=== PATIENT | female | born 1995 | race Caucasian/White ===

== ENCOUNTER 2016-08-19 16:14 | Inpatient (IN) | payer OTHER ==
[~2016-08-19] VITALS: Ht 165.1 cm; Wt 80.0 kg
[2016-08-19 16:27] VITALS: BP 136/81; PULSE 95; Ht 165.1 cm; Wt 80.0 kg
[2016-08-19] MEDS ORDERED: LACTATED RINGER'S 1,000 ML IV SCH (16:39)
[2016-08-19] MEDS ORDERED: CARBOPROST 250 MCG INJ IM PRN (17:00)
[2016-08-19] MEDS ORDERED: OXYTOCIN 30 UNITS/LR 500 ML IV PRN (17:00)
[2016-08-19] MEDS ORDERED: LACTATED RINGER'S 1,000 ML IV PRN (17:00)
[2016-08-19] MEDS ORDERED: METHYLERGONOVINE 0.2 MG INJ IM PRN (17:00)
[2016-08-19] MEDS ORDERED: MISOPROSTOL 200 MCG TAB PR PRN (17:00)
[2016-08-19] MEDS ORDERED: BUTORPHANOL 2 MG INJ IV PRN ×2 (17:00)
[2016-08-19] MEDS ORDERED: OXYTOCIN 30 UNITS/LR 500 ML IV SCH ×2 (17:00)
[2016-08-19] MEDS ORDERED: LIDOCAINE 1% (MPF) 30 ML INJ INJ PRN (17:00)
[2016-08-19] MEDS ORDERED: DINOPROSTONE 10 MG VAG SUPP VAG ONE (17:00)
--- NOTE | 2016-08-19 17:06 | RADRPT ---
PROCEDURE: US OB. CLINICAL INDICATION: Post dates. TECHNIQUE: Multiple sonographic images of the uterus were obtained. The images were revi ewed on a PACS workstation. COMPARISON: No prior studies are available for comparison. FINDINGS: There is a single live intrauterine gestation. heart rate is 136 beats per minute. Measurements were made in order to determine age. The results are as follows: BPD = 9.24 cm. HC = 34.39 cm. AC = 34.12 cm. FL = 7.47 cm. Estimated weight is 3424 +/- 514 grams. LMP growth percentile is 32 %. Menstrual age by ultrasound dates is 38 weeks 3 days. The estimated date of delivery is 08/30/2016. Position is cephalic and placenta is anterior grade 1. There is no evidence for an abruption or plac enta previa. IMPRESSION: 1. Single live intrauterine gestation of 38 weeks 3 days menstrual age by ultrasound dates. 2. The estimated date of delivery is 08/30/2016. RPTAT: QQ .Wiliam Taylor MD, Date Time Electronically viewed and signed by .Wiliam Taylor MD, on 08/19/2016 17:06 .R/
[2016-08-19] MEDS ORDERED: AMPICILLIN 2 GM/NS (PMX) 100 ML IV ONE (18:00)
[2016-08-19 18:23] LABS: ADD SCAN DIFF NO
[2016-08-19 18:31] LABS: BASOPHILS % 0.2 % (0.0-2.0); EOSINOPHILS % 0.3 % (0.0-7.0); HEMATOCRIT 35.1 % (37.0-47.0); HEMOGLOBIN 11.8 g/dl (12.0-16.0); LYMPHOCYTES # 2.3 10^3/ul (0.8-2.9); MEAN CORPUSCULAR HEMOGLOBIN 28.7 pg (29.0-33.0); MEAN CORPUSCULAR HGB CONC 33.6 g/dl (32.0-37.0); MEAN CORPUSCULAR VOLUME 85.4 fl (82.0-101.0); MEAN PLATELET VOLUME 11.5 fl (7.4-10.4); MONOCYTE # 0.8 10^3/ul (0.3-0.9); MONOCYTES % 7.6 % (0.0-11.0); NEUTROPHIL # 6.9 10^3/ul (1.6-7.5); NEUTROPHILS % 68.7 % (39.0-77.0); PLATELET COUNT 271 10^3/UL (140-415); RED BLOOD COUNT 4.11 10^6/ul (4.20-5.40); RED CELL DISTRIBUTION WIDTH 14.3 % (11.5-14.5)
[2016-08-19 18:42] LABS: INR 1.01; PARTIAL THROMBOPLASTIN TIME 27.9 Sec (25.0-35.0); PROTIME 13.3 Sec (12.2-14.2)
[2016-08-19 20:24] LABS: BARBITURATES Negative (NEGATIVE); BENZODIAZEPINES Negative (NEGATIVE); CANNABINOIDS Negative (NEGATIVE); COCAINE Negative (NEGATIVE); OPIATES Negative (NEGATIVE)
--- NOTE | 2016-08-19 21:03 | RADRPT ---
PROCEDURE: US OB biophysical profile. CLINICAL INDICATION: decreased movements, post dates TECHNIQUE: Multiple sonographic images of the pelvis were obtained. The images were reviewed on a PACS workstation. COMPARISON: No prior studies are available for comparison. FINDINGS: There is a single viable intrauterine gestation. Cardiac activity is present with 152 beats per min jose. There is a vertex presentation. The placenta is anterior. There is no evidence of placental abruption. There is a slightly decreased amount of amniotic fluid with an HEIDE = 7.5 cm. Biophysical profile: movement 2/2 tone 2/2. breathing 2/2 HEIDE 2/2 Total 09/20 RPTAT: AA . IMPRESSION: Normal biophysical profile. Mild oligohydramnios. . .Master Pleitez MD, MD Date Time Electronically viewed and signed by .Master Pleitez MD, MD on 08/19/2016 21:03 .S/
[2016-08-19] MEDS ORDERED: AMPICILLIN 1 GM/NS (PMX) 50 ML IV SCH (22:00)
--- NOTE | 2016-08-19 23:36 | PN ---
Triage Information Date/Time Aug 19, 2016 at 16:46 Weeks of Gestation 40 weeks and 1 day : 1 Para: 0 Diabetes: none Hypertention: none Additional information 21-year-old 1 para 0 with IUP at 40 weeks and 1 day with care with [facility] presented with flank uterine contractions. She was observed and was noted to have a nonfavorable cervix. She was 1 cm 50% -2. Antepartum course was uncomplicated. NST category 1. HEIDE 7.4. Patient observed after couple hours. No cervical change noted. Options discussed including starting induction versus expectant management until 40 weeks and 6 days and plan to induce at 40 and 6 considering testing twice a week reassuring. Patient desires to proceed with expectant management as above. Objective Vital Signs Date Time Temp Pulse Resp B/P Pulse Ox O2 Delivery O2 Flow Rate FiO2 08/19/16 16:27 98.5 95 136/81 Heart Rate: 130's Contractions: >10 Minutes Apart Exam General appearance: Alert and oriented 4. Patient does not appear to be in any acute distress. Abdomen: Soft, gravid, fundal height consistent with gestational age. Extremities: No calf tenderness, no click no edema. NST: Category 1 HEIDE: 7.4 Cervical exam: 1/50-2 vertex. No cervical change noted during observation Results/Medications Result Diagram: 08/19/16 1710 Results 24 hrs Laboratory Tests Test 08/19/16 17:10 08/19/16 18:30 White Blood Count 10.0 # Red Blood Count 4.11 L Hemoglobin 11.8 L Hematocrit 35.1 L Mean Corpuscular Volume 85.4 Mean Corpuscular Hemoglobin 28.7 L Mean Corpuscular Hemoglobin Concent 33.6 Red Cell Distribution Width 14.3 Platelet Count 271 Mean Platelet Volume 11.5 #H Neutrophils % 68.7 Lymphocytes % 23.0 Monocytes % 7.6 Eosinophils % 0.3 Basophils % 0.2 Nucleated Red Blood Cells % 0.0 Neutrophils # 6.9 Lymphocytes # 2.3 Monocytes # 0.8 Eosinophils # 0.0 Basophils # 0.0 Nucleated Red Blood Cells # 0.0 Prothrombin Time 13.3 Prothrombin Time Ratio 1.0 INR International Normalized Ratio 1.01 Activated Partial Thromboplast Time 27.9 Hepatitis B Surface Antigen NEGATIVE Urine Opiates Screen Negative Urine Barbiturates Negative Urine Amphetamines Screen Negative Urine Benzodiazepines Screen Negative Urine Cocaine Screen Negative Urine Cannabinoids Negative Imaging Results PROCEDURE: US OB biophysical profile. CLINICAL INDICATION: decreased movements, post dates TECHNIQUE: Multiple sonographic images of the pelvis were obtained. The images were reviewed on a PACS workstation. COMPARISON: No prior studies are available for comparison. FINDINGS: There is a single viable intrauterine gestation. Cardiac activity is present with 152 beats per minute. There is a vertex presentation. The placenta is anterior. There is no evidence of placental abruption. There is a slightly decreased amount of amniotic fluid with an HEIDE = 7.5 cm. Biophysical profile: movement 2/2 tone 2/2. breathing 2/2 HEIDE 2/2 Total 09/20 RPTAT: AA . IMPRESSION: Normal biophysical profile. Mild oligohydramnios. . PROCEDURE: US OB. CLINICAL INDICATION: Post dates. TECHNIQUE: Multiple sonographic images of the uterus were obtained. The images were reviewed on a PACS workstation. COMPARISON: No prior studies are available for comparison. FINDINGS: There is a single live intrauterine gestation. heart rate is 136 beats per minute. Measurements were made in order to determine age. The results are as follows: BPD = 9.24 cm. HC = 34.39 cm. AC = 34.12 cm. FL = 7.47 cm. Estimated weight is 3424 +/- 514 grams. LMP growth percentile is 32 %. Menstrual age by ultrasound dates is 38 weeks 3 days. The estimated date of delivery is 08/30/2016. Position is cephalic and placenta is anterior grade 1. There is no evidence for an abruption or placenta previa. IMPRESSION: 1. Single live intrauterine gestation of 38 weeks 3 days menstrual age by ultrasound dates. 2. The estimated date of delivery is 08/30/2016. RPTAT: QQ Assessment/Plan IUP at 40 weeks and 1 day Postdates None in labor Unfavorable cervix testing reassuring Plan: NV home options including induction and increased risk of section versus expectant management with close monitoring and twice a week testing and induction at 40 weeks and 6 days discussed with the patient with the risk and benefit of each in detail. Patient desired to proceed with expectant management Follow-up tomorrow in 24 hours after hydration for repeat HEIDE If HEIDE normal continue expectant management with twice a week testing and plan to deliver at 40 weeks and 6 days Strict labor precaution and kick count discussed. CHAD LOPEZ MD Aug 19, 2016 23:35
== END 2016-08-19 23:03 | disposition home or self-care (01) | DRG 782 ==
LOC: OBT 16:14 → L-D 16:14 → OBT 16:35 → L-D 16:46
PROVIDERS: ADMIT Obstetrics & Gynecology; ATTEND Obstetrics & Gynecology
PROC: 4A0HXCZ Measurement of Products of Conception, Cardiac Rate, External Approach (ICD-10-PCS; principal; 2016-08-19)
DX: O48.0 Post-term pregnancy (principal); Z3A.40 40 weeks gestation of pregnancy
CPT/HCPCS: 76815; 76818; 80307; 85025; 85610; 85730; 86592; 86900; 86901; 87340; G0463; J0290; J7120

== ENCOUNTER 2016-08-21 08:14 | Outpatient (CLI) | payer OTHER ==
[~2016-08-21] VITALS: Ht 165.1 cm; Wt 80.5 kg
[2016-08-21 08:42] VITALS: Ht 165.1 cm; Wt 80.5 kg
[2016-08-21 08:43] VITALS: BP 116/69; PULSE 85; RESP 85
--- NOTE | 2016-08-21 09:19 | RADRPT ---
PROCEDURE: US OB biophysical profile. CLINICAL INDICATION: decreased movements, post dates TECHNIQUE: Multiple sonographic images of the pelvis were obtained. The images were reviewed on a PACS workstation. COMPARISON: No prior studies are available for comparison. FINDINGS: There is a single viable intrauterine gestation. Cardiac activity is present with 144 beats per min jose. There is a vertex presentation. The placenta is anterior. There is no evidence of placental abruption. There is a normal amount of amniotic fluid with an HEIDE = 7.9 cm. Biophysical profile: movement 2/2 tone 2/2. breathing 2/2 HEIDE 2/2 Total 09/20 RPTAT: AA . IMPRESSION: Normal biophysical profile. Slightly decreased HEIDE. . .Master Pleitez MD, Date Time Electronically viewed and signed by .Master Pleitez MD, on 08/21/2016 09:18 .S/
--- NOTE | 2016-08-21 09:52 | PN ---
Triage Information Date/Time August 21, 2016 Weeks of Gestation 40w 3d : 2 Para: 0 Diabetes: none Hypertention: none Additional information Here for follow-up on her HEIDE; postdates. Objective Vital Signs Date Time Temp Pulse Resp B/P Pulse Ox O2 Delivery O2 Flow Rate FiO2 08/21/16 08:43 98.2 85 85 116/69 Room Air Heart Rate: 140's Heart Rate Comments Accels to 170 bpm. Questionable slight variable decel with a UC, otherwise good beat to beat variability. Contractions: None Exam 60%/2/-2/very posterior. Results/Medications Imaging Results BPP 8/8. HEIDE 7.9. Assessment/Plan IUP at 40w 3d. Postdates. HEIDE normal at 7.9. BPP 8/8. P: D/C home and pt to return tonight for pitocin induction due to slight variable with a UC. It is the pt's grandmother's birthday this afternoon and she really does not want to miss it. She promises to come back immediately after it is over. YUNG CARRERA MD Aug 21, 2016 09:52
== END 2016-08-21 09:55 | disposition home or self-care (01) ==
LOC: L-D 08:14 → OBT 08:14
PROVIDERS: ATTEND Obstetrics & Gynecology
DX: O62.8 Other abnormalities of forces of labor (principal); Z3A.40 40 weeks gestation of pregnancy
CPT/HCPCS: 76818; Z7500; G0463

== ENCOUNTER 2016-08-21 19:00 | Inpatient (IN) | payer OTHER ==
[~2016-08-21] VITALS: Ht 165.1 cm; Wt 80.8 kg
[2016-08-21 23:26] LABS: ADD SCAN DIFF NO
[2016-08-21 23:28] LABS: BASOPHILS % 0.2 % (0.0-2.0); EOSINOPHILS % 0.5 % (0.0-7.0); HEMATOCRIT 32.1 % (37.0-47.0); LYMPHOCYTES # 2.3 10^3/ul (0.8-2.9); LYMPHOCYTES % 26.4 % (15.0-51.0); MEAN CORPUSCULAR HEMOGLOBIN 29.3 pg (29.0-33.0); MEAN CORPUSCULAR HGB CONC 34.3 g/dl (32.0-37.0); MEAN CORPUSCULAR VOLUME 85.4 fl (82.0-101.0); MEAN PLATELET VOLUME 10.9 fl (7.4-10.4); MONOCYTE # 0.8 10^3/ul (0.3-0.9); MONOCYTES % 9.2 % (0.0-11.0); NEUTROPHIL # 5.7 10^3/ul (1.6-7.5); NEUTROPHILS % 63.6 % (39.0-77.0); PLATELET COUNT 272 10^3/UL (140-415); RED BLOOD COUNT 3.76 10^6/ul (4.20-5.40); RED CELL DISTRIBUTION WIDTH 14.1 % (11.5-14.5); WHITE BLOOD COUNT 8.9 10^3/ul (4.8-10.8)
[2016-08-21] MEDS ORDERED: CARBOPROST 250 MCG INJ IM PRN (23:30)
[2016-08-21] MEDS ORDERED: OXYTOCIN 30 UNITS/LR 500 ML IV SCH ×2 (23:30)
[2016-08-21] MEDS ORDERED: LACTATED RINGER'S 1,000 ML IV PRN (23:30)
[2016-08-21] MEDS ORDERED: OXYTOCIN 30 UNITS/LR 500 ML IV PRN (23:30)
[2016-08-21] MEDS ORDERED: METHYLERGONOVINE 0.2 MG INJ IM PRN (23:30)
[2016-08-21] MEDS ORDERED: IBUPROFEN 600 MG TAB PO PRN (23:30)
[2016-08-21] MEDS ORDERED: MISOPROSTOL 200 MCG TAB PR PRN (23:30)
[2016-08-21] MEDS ORDERED: LIDOCAINE 1% (MPF) 30 ML INJ INJ PRN (23:30)
[2016-08-21] MEDS: LACTATED RINGER'S 1,000 ML IV SCH (23:37)
[2016-08-21 23:42] VITALS: Ht 165.1 cm; Wt 80.8 kg
[2016-08-21 23:43] VITALS: BP 123/66; PULSE 99; RESP 16
[2016-08-21 23:47] LABS: INR 0.93; PARTIAL THROMBOPLASTIN TIME 27.2 Sec (25.0-35.0); PROTIME 12.5 Sec (12.2-14.2)
--- NOTE | 2016-08-22 00:39 | RADRPT ---
PROCEDURE: Obstetrical ultrasound greater than 14 weeks CLINICAL INDICATION: Contractions. Estimated weight TECHNIQUE: Real time sonographic imaging of the gravid uterus is performed transabdominally and mu ltiple static roche scale and Doppler images are submitted for review as are measurements. The image s are reviewed on the PACS. COMPARISON: 08/19/2016 FINDINGS: There is a single living intrauterine gestation in cephalic presentation. The heart beat is estimated at 166 bpm. The measurements are as follows: BPD:9.32 cm HC:33.99 cm AC:36.44 cm FL:7.85 cm Estimated gestational age is 39 weeks 3 days. The estimated date of delivery is 08/25/2016. The estimated weight is 3901 grams. Placenta is anterior and grade2. There is no evidence of placenta previa or abruption. RPTAT:HJJR IMPRESSION: 1. Single viable intrauterine gestation in cephalic presentation estimated at 39 weeks 3 days with t he estimated date of delivery 08/25/2016. 2. Estimated weight of 3901 g, previously estimated at 3424 g on the study of 08/19/2016. Physician Marj Date Time Electronically viewed and signed by Physician Marj on 08/22/2016 00:39 /
--- NOTE | 2016-08-22 01:10 | HP ---
Date/Time of Note Date/Time of Note DATE: 08/22/16 TIME: 01:07 OB - History Hx of Present Chief Complaint: induction of labor Estimated Due Date: Aug 18, 2016 : 2 Para: 0 Spontaneous : 1 Therapeutic : 0 Care: Other (records not available) Ultrasounds: Other (normal ultrasound today) Obstetrical Complications: None Medical Complications: None Past Family/Social History * Past Medical, Surgical, Family and Obstetric Histories reviewed from chart. GBS Status: Negative OB Admission Exam Vital Signs Vital Signs Vital Signs Date Time Temp Pulse Resp B/P Pulse Ox O2 Delivery O2 Flow Rate FiO2 08/21/16 23:43 98.4 99 16 123/66 Room Air Physical Exam HEENT: WNL Heart: Rhythm Normal Lungs: Clear, Equal Abdomen: WNL Extremities: Normal Reflexes: Normal Cervical Dilatation: 2cm Effacement: 50% Station: -1 Membranes: Intact Last 72 hours Lab Results CBC & BMP 08/21/16 23:15 OB Assessment/Plan Reason for admission: induction of labor Plan: Induction Induction Method: per Pitocin Protocol ZACARIAS ARELLANO MD Aug 22, 2016 01:10
[2016-08-22] MEDS ORDERED: BUTORPHANOL 2 MG INJ IV PRN (06:00)
[2016-08-22] MEDS: LACTATED RINGER'S 1,000 ML IV SCH ×4 (07:10→20:55)
[2016-08-22] MEDS ORDERED: ONDANSETRON 4 MG INJ IV PRN (08:30)
[2016-08-22] MEDS ORDERED: HYDROmorphONE 1 MG/ML SYG IV PRN ×2 (08:30)
[2016-08-22] MEDS ORDERED: ZOLPIDEM 5 MG TAB PO PRN (08:30)
[2016-08-22] MEDS ORDERED: FENTAnyl 2MCG/ML-ROPIV 0.2% 100 ML BAG EPI SCH (08:30)
[2016-08-22] MEDS ORDERED: NALOXONE (0.4 MG/ML) INJ IV PRN (08:30)
[2016-08-22] MEDS ORDERED: PROCHLORPERAZINE 10 MG INJ IV PRN (08:30)
[2016-08-22] MEDS ORDERED: KETOROLAC 30 MG INJ IV PRN (08:30)
[2016-08-22] MEDS ORDERED: DIPHENHYDRAMINE 50 MG INJ IV PRN (08:30)
[2016-08-22] MEDS ORDERED: TERBUTALINE 1 MG/ML INJ SC ONE (11:30)
[2016-08-22] MEDS ORDERED: OXYTOCIN 30 UNITS/LR 500 ML IV SCH (15:30)
[2016-08-22] MEDS ORDERED: AMPICILLIN 2 GM/NS (PMX) 100 ML IVPB ONE (15:30)
[2016-08-22] MEDS: AMPICILLIN 1 GM/NS (PMX) 50 ML IVPB SCH ×2 (19:28→23:30)
[2016-08-22] MEDS ORDERED: LIDOCAINE 2%/EPI 30 ML INJ ONE (23:14)
[2016-08-22] MEDS ORDERED: TERBUTALINE 1 ML ONE (23:15)
[2016-08-22] MEDS ORDERED: PHENYLephrine (100 MCG/ML) 5ML SYG ONE ×3 (23:18→23:52)
[2016-08-22] MEDS ORDERED: CEFAZOLIN 1 GM INJ ONE (23:23)
[2016-08-22] MEDS ORDERED: FENTAnyl 50 MCG/ML VIAL ONE ×2 (23:34→23:42)
[2016-08-22] MEDS ORDERED: morphine SULFATE/PF (10 MG/10 ML) INJ ONE (23:48)
[2016-08-23] MEDS ORDERED: DIPHENHYDRAMINE 50 MG INJ IV PRN
[2016-08-23] MEDS ORDERED: FENTAnyl 50 MCG/ML VIAL IV PRN ×2
[2016-08-23] MEDS ORDERED: ONDANSETRON 4 MG INJ IV PRN
[2016-08-23] MEDS ORDERED: MEPERIDINE 25 MG INJ IV PRN
[2016-08-23] MEDS ORDERED: METOCLOPRAMIDE 10 MG INJ IV PRN
[2016-08-23] MEDS ORDERED: KETOROLAC 30 MG INJ IV ONE
[2016-08-23] MEDS ORDERED: HYDROmorphONE (0.2 MG/ML) 10ML SYG IV PRN ×3
[2016-08-23] MEDS ORDERED: PHENYLephrine (100 MCG/ML) 5ML SYG ONE (00:20)
--- NOTE | 2016-08-23 02:22 | OPR ---
Operative Report Planned Procedure Procedure date Aug 23, 2016 Procedure(s) Primary C/S Performed by: AMEE MARES MD Assisting provider: AMY SERNA MD Pre-procedure diagnosis 21 y/o with SIUP at 40 4/7 weeks with prolonged deceleration Anesthesia Type: epidural Procedure Description INDICATION & HISTORY The patient is a 21 year-old with single intrauterine at 40 4/7 weeks with prolonged deceleration. The risks of delivery including but not limited to bleeding, infection, injury to other organs (bowel, bladder, ureters , vessels, nerves), injury to the , blood transfusion, blood transfusion related infections, removal of uterus, risk of anesthesia, risks with future , repeat , adhesion/hernia formation discussed in detail with the patient. She voiced understanding and agreed with . She signed the informed consent. DESCRIPTION OF OPERATION: The patient was taken to the operating room, where she was identified and the procedure was verified. She had epidural anesthesia which bolus dose given, The patient was placed in dorsal supine position with the left tilt. The heart rate was 86-135 per minute. The patient was then prepped and draped in the normal sterile fashion. The Pfannenstiel skin incision was made, and carried down to the fascia. The fascia was incised in the midline, and the fascial incision was carried laterally with the Dodson scissors. The superior portion of the fascial incision was then grasped with Uri clamps, tented up and dissected off the underlying rectus muscle with sharp dissection. The lower portion of the fascial incision was then made in a similar fashion. The rectus muscle was and the peritoneum was entered. The peritoneal incision was then stretched and a bladder blade was inserted. Then, an incision was made in the lower uterine segment in a transverse fashion with the knife and extended bluntly. The was delivered atraumatically in cephalic presentation, with the above findings. The resuscitation team was present and the baby was handed to them. A cord blood sample was obtained for further evaluation. The placenta and membranes, which appeared normal were removed. The uterus was exteriorized and cleared of all clots and debris. The uterus was then closed in a two layer fashion with 0 Vicryl. At the time of closure, hemostasis was noted. The gutters were irrigated. The peritoneum was reapproximated with 3-0 Vicryl. The muscle was reapproximated with 3-0 Vicryl. The fascia approximated with 0 Vicryl in a running fashion. The subcutaneous closed in two *layer with 3/0 vicryl. The skin was closed with 4-0 Monocryl. All instrument, sponge, lap, and needle counts were correct x4. The patient tolerated the procedure well. She was transferred to the recovery room in stable condition. The patient received 2 g Ancef 30 minutes prior to surgery. Post-Procedure Post-procedure diagnosis Same Findings: Live Baby [male], [8] and [9], weight [8 lbs] Specimen removed: No Complications: None Pt Condition post procedure: stable Physician Certification I, the undersigned physician, hereby certify that I have discussed the procedure described in this consent form with this patient (or the patient's legal entry level sales representative), including: * The risk and benefits of the procedure; * Any adverse reactions that may reasonably be expected to occur; * Any alternative efficacious methods of treatment which may be medically viable ; * The potential problems that may occur during recuperation; * Potential for blood transfusion and associated risks/benefits; and * Any research or economic interest I may have regarding this treatment. I further certify that the patient/legally responsible person was encouraged to ask question and that all questions were answered. TAMIKO CUTLER Aug 23, 2016 02:21
[2016-08-23 03:30] VITALS: BP 128/75; PULSE 98; RESP 19
[2016-08-23] MEDS: AMPICILLIN 1 GM/NS (PMX) 50 ML IVPB SCH (03:30)
[2016-08-23] MEDS: LACTATED RINGER'S 1,000 ML IV SCH ×2 (06:36→14:51)
[2016-08-23 07:20] VITALS: BP 116/64; PULSE 100; RESP 19
[2016-08-23 09:57] LABS: ADD SCAN DIFF NO
[2016-08-23 09:59] LABS: BASOPHILS % 0.1 % (0.0-2.0); EOSINOPHILS % 0.1 % (0.0-7.0); HEMOGLOBIN 9.5 g/dl (12.0-16.0); LYMPHOCYTES # 1.9 10^3/ul (0.8-2.9); MEAN CORPUSCULAR HEMOGLOBIN 28.5 pg (29.0-33.0); MEAN CORPUSCULAR HGB CONC 32.8 g/dl (32.0-37.0); MEAN CORPUSCULAR VOLUME 87.1 fl (82.0-101.0); MEAN PLATELET VOLUME 11.3 fl (7.4-10.4); MONOCYTE # 1.1 10^3/ul (0.3-0.9); MONOCYTES % 6.4 % (0.0-11.0); PLATELET COUNT 239 10^3/UL (140-415); RED BLOOD COUNT 3.33 10^6/ul (4.20-5.40); RED CELL DISTRIBUTION WIDTH 14.6 % (11.5-14.5)
[2016-08-23] MEDS: KETOROLAC 30 MG INJ IV PRN ×3 (10:36→22:37)
[2016-08-23 12:00] VITALS: BP 121/65; PULSE 98; RESP 19
[2016-08-23 16:00] VITALS: BP 116/59; PULSE 92; RESP 18
[2016-08-23] MEDS ORDERED: OXYCODONE/ACETAMINOPHEN (5/325) TAB PO PRN (19:00)
[2016-08-23 20:00] VITALS: BP 104/44; PULSE 97; RESP 18
[2016-08-23] MEDS: OXYCODONE/ACETAMINOPHEN (5/325) TAB PO PRN (23:49)
[2016-08-24 04:00] VITALS: BP 104/63; PULSE 88; RESP 18
[2016-08-24] MEDS: OXYCODONE/ACETAMINOPHEN (5/325) TAB PO PRN ×3 (04:17→22:31)
[2016-08-24] MEDS: IBUPROFEN 600 MG TAB PO SCH ×4 (06:45→17:09)
[2016-08-24 07:35] VITALS: BP 103/54; PULSE 82; RESP 19
--- NOTE | 2016-08-24 08:53 | CONS ---
Date/Time of Note Date/Time of Note DATE: 08/24/16 TIME: 08:50 Consultation Date/Type/Reason Admit Date/Time Aug 21, 2016 at 22:45 Initial Consult Date 08/23/16 Type of Consultation: Anesthesiology Reason for Consultation Follow up 24 HR Interval Summary Free Text/Dictation Pt seen and examined is POD#1 s/p Labor to Emergency c/s for decreased HR. Pt had an epidural which was bolused for surgery. Pt received Duramorph injection through epidural for post op pain control. She is currently doing well with adequate pain control. No N/V/D/C/COLIN/Numbness in extremities. Will continue to follow. Constitutional: improved, no complaints Exam/Review of Systems Vital Signs Vitals Vital Signs Date Time Temp Pulse Resp B/P Pulse Ox O2 Delivery O2 Flow Rate FiO2 08/24/16 04:00 98.0 88 18 104/63 08/24/16 01:25 95 21 08/23/16 20:00 Room Air Intake and Output 08/23/16 08/23/16 08/24/16 15:00 23:00 07:00 Intake Total 1300 ml 575 ml Output Total 300 ml 1800 ml 1250 ml Balance 1000 ml -1225 ml -1250 ml Results Result Diagram: 08/23/16 0822 Medications Medications Current Medications Lidocaine 30 ml 30 ml ONCE PRN INJ EPISIOTOMY/TEARING; Start 08/21/16 at 23:30 Oxytocin/Lactated Ringer's 500 ml @ 125 mls/hr ONCE IV ; Start 08/21/16 at 23:30 Oxytocin/Lactated Ringer's 500 ml @ 0 mls/hr ONCE PRN IV For Hemorrhage Management; Start 08/21/16 at 23:30 Methylergonovine Maleate (Methergine) 0.2 mg ONCE PRN IM VAGINAL BLEEDING; Start 08/21/16 at 23:30 Carboprost Tromethamine (Hemabate) 250 mcg ONCE PRN IM VAGINAL BLEEDING; Start 08/21/16 at 23:30 Misoprostol (Cytotec) 1,000 mcg ONCE PRN AR VAGINAL BLEEDING; Start 08/21/16 at 23:30 Butorphanol Tartrate 2 mg 2 mg Q2H PRN IV PAIN Last administered on 08/22/16t 06:05; Admin Dose 2 MG; Start 08/22/16 at 06:00 Oxytocin/Lactated Ringer's 500 ml @ 0 mls/hr Q0M IV Last administered on 16:07; Admin Dose 1 MLS/HR; Start 08/22/16 at 15:30 Oxycodone/ Acetaminophen (Percocet (5/ 325)) 1 tab Q4H PRN PO PAIN; Start 08/23 at 19:00 Oxycodone/ Acetaminophen (Percocet (5/ 325)) 2 tab Q4H PRN PO PAIN Last administered on 08/24/16 04:17; Admin Dose 2 TAB; Start 08/23/16 at 19:00 Ibuprofen (Motrin) 600 mg Q6 PO Last administered on 08/24/16 06:45; Admin Dose 600 MG; Start 08/24/16 at 00:00 PANKAJ MARIE Aug 24, 2016 08:53
--- NOTE | 2016-08-24 10:13 | PN ---
Date/Time of Note Date/Time of Note DATE: 08/24/16 TIME: 10:11 OB Subjective Subjective Subjective Post day 1 Afebrile abdomen soft uterus firm incision dry lochia normal extremity normal bowel sounds present able to pass flatus no bowel ambulation encouraged JEAN SPRAGUE MD Aug 24, 2016 10:13
[2016-08-24] MEDS ORDERED: NA PHOSPHATE/BIPHOS 133 ML ENEMA PR ONE ×2 (10:30)
[2016-08-24 15:52] VITALS: BP 121/78; PULSE 86; RESP 19
[2016-08-24 19:35] VITALS: BP 93/58; PULSE 61; RESP 18
[2016-08-25] MEDS: IBUPROFEN 600 MG TAB PO SCH ×3 (00:55→11:30)
[2016-08-25 04:20] VITALS: BP 102/54; PULSE 79; RESP 19
[2016-08-25 07:50] VITALS: BP 102/62; PULSE 81; RESP 16
--- NOTE | 2016-08-25 12:24 | PD.PPDC ---
POLITICAL ORGANIZER Discharge Instruction Condition Patient Condition: Good Diet Diet: Resume Regular Diet Wound/Drain Care Instructions Wound/Drain Care Instructions: Remove Steri Strips in 2 weeks Follow-up Follow-up with Physician: 1, Week/Weeks Return to clinic for STORE MANAGER Instructions: Fever greater than 101 Chills Worsening abdominal pain Excessive Vaginal Bleeding More than 2 pads per hour Unable to tolerate diet OB Instructions: Breast Tenderness Depression Blurried Vision Headache Surgical Instructions: Incisional Drainage Incisional Redness JEAN SPRAGUE MD Aug 25, 2016 12:24
--- NOTE | 2016-08-25 12:28 | DS ---
Date/Time of Note Date/Time of Note DATE: 08/25/16 TIME: 12:26 Discharge Summary Admission/Discharge Info Admit Date/Time Aug 21, 2016 at 22:45 Discharge Date/Time August 25, 2016 at 1245 Discharge Diagnosis Post date 3 Patient Condition: Good Procedures Primary due to category 3 heart tracing Hx of Present Illness Term Hospital Course Satisfactory uneventful Home Meds No Active Prescriptions or Reported Meds Follow-up Plan Appointment clinic in 1 week Primary Care Provider [facility] Time spent on discharge: < 30 minutes JEAN SPRAGUE MD Aug 25, 2016 12:28
== END 2016-08-25 14:16 | disposition home or self-care (01) | DRG 766 ==
LOC: L-D 22:45 → PP1 08-23 03:06
PROVIDERS: ADMIT Obstetrics & Gynecology; ATTEND Obstetrics & Gynecology
PROC: 3E033VJ Introduction of Other Hormone into Peripheral Vein, Percutaneous Approach (ICD-10-PCS; 2016-08-21)
PROC: 10D00Z1 Extraction of Products of Conception, Low, Open Approach (ICD-10-PCS; principal; 2016-08-23)
DX: O76 Abnormality in fetal heart rate and rhythm complicating labor and delivery (principal); Z37.0 Single live birth; Z3A.40 40 weeks gestation of pregnancy
CPT/HCPCS: 76815; 85025; 85610; 85730; 86592; 94760; 99464; J0290; J0595; J0690; J1170; J1200; J1885; J2274; J2370; J2405; J2590; J3010; J3105; J7120